=== PATIENT | male | born 1945 | race Caucasian/White ===

== ENCOUNTER 2023-08-08 10:01 | Outpatient (CLI) | payer OTHER | END 2023-08-08 10:02 | disposition home or self-care (01) | LOC: CSHULT 10:01 | PROVIDERS: ATTEND Internal Medicine Cardiovascular Disease | DX: I71.40 Abdominal aortic aneurysm, without rupture, unspecified (principal); I74.09 Other arterial embolism and thrombosis of abdominal aorta | CPT/HCPCS: 76706 ==